=== PATIENT | male | born 1990 | race Caucasian/White ===

== ENCOUNTER 2020-04-14 09:05 | Emergency (ER) | payer OTHER ==
[2020-04-14 09:12] VITALS: BP 156/93; PULSE 95; RESP 18; TEMP 98.8
--- NOTE | 2020-04-14 09:27 | ED ---
Skin/Abscess/FB HPI - General Chief complaint: Skin/Abscess/Foreign Body Stated complaint: infection lt leg Time Seen by Provider: 04/14/20 09:14 Source: patient, RN notes reviewed Mode of arrival: ambulatory Limitations: no limitations - History of Present Illness Initial comments: 30-year-old male presents emergency Department with chief complaint of left leg infection. Patient states it started a few days is small bump. Patient states increased in size states more painful today in which she states that his shoe with his leg causing interruption open and drainage of purulent material. Patient states that he does not know how this started. He's had no fevers or chills no pain proximal or distal of the site. Patient has no history of diabet es. Patient denies any other complaints. y - Related Data Previous Rx's Medication Instructions Recorded Cephalexin [Keflex] 500 mg PO Q6HR #40 cap 04/14/20 Sulfamethox-Tmp 800-160Mg [Bactrim 1 each PO Q12HR #20 tab 04/14/20 Ds] Allergies Allergy/AdvReac Type Severity Reaction Status Date / Time No Known Allergies Allergy Verified 04/14/20 09:12 Review of Systems ROS Statement: Those systems with pertinent positive or pertinent negative responses have been documented in the HPI. ROS Other: All systems not noted in ROS Statement are negative. Past Medical History Past Medical History: No Reported History History of Any Multi-Drug Resistant Organisms: None Reported Past Surgical History: No Surgical Hx Reported Past Psychological History: No Psychological Hx Reported Smoking Status: Never smoker Past Alcohol Use History: None Reported Past Drug Use History: Marijuana General Exam Limitations: no limitations General appearance: alert, in no apparent distress Head exam: Present: atraumatic, normocephalic, normal inspection Respiratory exam: Present: normal lung sounds bilaterally. Absent: respiratory distress, wheezes, rales, rhonchi, stridor Cardiovascular Exam: Present: regular rate, normal rhythm, normal heart sounds. Absent: systolic murmur, diastolic murmur, rubs, gallop, clicks GI/Abdominal exam: Present: soft, normal bowel sounds. Absent: distended, tenderness, guarding, rebound, rigid Extremities exam: Present: other (There is approximately an area 3 cm of erythema with a centralized abscess 1 cm with purulent drainage on the left distal anterior levine. Neurovascular intact no proximal lymph nodes palpable) Neurological exam: Present: alert Skin exam: Present: warm, dry, intact, normal color. Absent: rash Course Vital Signs 04/14/20 09:06 Temperature 98.8 F Pulse Rate 95 Respiratory 18 Rate Blood Pressure 156/93 Medical Decision Making - Medical Decision Making X-ray is negative for foreign body or osseous lesion. Patient does have some sausages swelling consistent with a cellulitis, abscess. Patient was started on oral antibiotics, warm compresses and close follow-up return parameters were discussed. Patient agrees to plan. Disposition Clinical Impression: Left leg cellulitis Disposition: HOME SELF-CARE Condition: Stable Instructions (If sedation given, give patient instructions): Cellulitis (ED) Additional Instructions: Please return to the Emergency Department if symptoms worsen or any other concerns. Prescriptions: Sulfamethox-Tmp 800-160Mg [Bactrim Ds] 1 each PO Q12HR #20 tab Cephalexin [Keflex] 500 mg PO Q6HR #40 cap Is patient prescribed a controlled substance at d/c from ED?: No Referrals: None,Stated [Primary Care Provider] - 1-2 days Time of Disposition: 09:49
--- NOTE | 2020-04-14 09:46 | XR ---
EXAMINATION TYPE: XR tibia fibula LT DATE OF EXAM: 04/14/2020 COMPARISON: NONE HISTORY: Pain TECHNIQUE: Two views are submitted. FINDINGS: The osseous structures are intact. The joint spaces are preserved. Soft tissue edema noted. Well-co rticated density adjacent to the medial malleolus likely related to accessory ossicle. Less likely re mote trauma. No destructive osseous changes. Evidence of remote Frederick-Schlatter disease noted. Local ized focal soft tissue edema along the mid to distal anterior margin of the tibia. IMPRESSION: 1. No acute osseous abnormality. Soft tissue edema correlate for cellulitis or soft tissue mass.
[2020-04-14] MEDS ORDERED: ACET/COD 300 MG/30 MG STARTER PACK 6 TAB BTL PO STA (09:49)
== END 2020-04-14 10:06 | disposition home or self-care (01) ==
LOC: EC 09:05
DX: L03.116 Cellulitis of left lower limb (principal)
CPT/HCPCS: 87070; 87077; 87186; 87205; 99283